=== PATIENT | male | born 2000 | race Caucasian/White ===

== ENCOUNTER 2020-02-15 13:00 | Outpatient (CLI) | payer BC ==
--- NOTE | 2020-02-15 13:23 | ULT ---
Scrotal sonogram HISTORY: Scrotal pain. FINDINGS: Right testicle is 3.8 cm length and left is 3.9 cm. Good color and spectral Doppler flow wi thin each testicle. No mass evident. Small areas of distended venous structures in the each side of the scrotum become more engorged upon Valsalva maneuver. Tiny cyst left epididymal head 0.2 cm. IMPRESSION : No evidence of testicular mass or torsion. Small bilateral varicoceles.
== END 2020-02-15 13:01 | disposition home or self-care (01) ==
LOC: ULT 13:00
PROVIDERS: ATTEND Urology
DX: N50.82 Scrotal pain (principal); I86.1 Scrotal varices; R35.0 Frequency of micturition
CPT/HCPCS: 76870; 81001; 87086; 93976